=== PATIENT | male | born 1940 | race Caucasian/White ===

== ENCOUNTER 2023-05-27 15:43 | Observation (INO) | payer MEDICARE, OTHER ==
--- NOTE | 2023-05-27 16:06 | ERPHSYRPT ---
- History of Present Illness Time Seen by Provider: 05/27/23 16:06 Source: patient Exam Limitations: no limitations Patient Subjective Stated Complaint: Pt was driving when he suddenly had head pain and his eyes got blurry, broke out into a sweat, had jaw pain and thought he was going to pass out, pt went to the [facility] in [place] and they told him to go to the ER, pt did take a nitro which helped Triage Nursing Assessment: Pt brought to the ER by his , vitals wnl, rates head pain as a 2-3/10, states that he feels much better, pulses normal, skin n/w/d, walked into the ER room slowly, pt states that he has a hx of afib and 2 leaky valves, no difficulty breathing, no blurry vision, pt is on eliquis Physician History: Patient is a 83-year-old male presents to our ED as a referral from [facility]. Patient states he was driving his vehicle. Patient became acutely symptomatic. Patient states he developed "head pain". Patient vision became blurred he became sweaty and diaphoretic. Patient experienced some chest pressure and discomfort in his jaw. Patient had a near syncopal episode. Patient went to [facility]. Advised him of his symptoms and patient was referred to our ED. Patient's symptoms had improved but patient still feeling somewhat dizzy. Patient has a history of atrial fibrillation currently on Eliquis. Symptoms were associated with some chest pressure. No active chest pressure at this time. at bedside. They voiced no other complaints or concerns at this time. Portions of this note were created with voice recognition technology. There may be grammatical, spelling, punctuation or sound alike errors Timing/Duration: today Severity: moderate Modifying Factors: Improves With: nothing Associated Symptoms: diaphoresis, other (Chest pressure) Allergies/Adverse Reactions: propoxyphene HCl [From Darvon] Allergy (Verified 05/27/23 16:00) Home Medications: Levothyroxine Sodium 50 Mcg [Synthroid 50 Mcg] 50 mcg PO DAILY 05/02/15 [History] Metformin HCl 500 mg [Glucophage 500 MG] 500 mg PO BID 05/02/15 [History] dilTIAZem HCl [Cardizem Cd] 180 mg PO DAILY 09/29/15 [History] Glimepiride 2 mg [Amaryl 2 MG] 2 mg PO DAILY 06/20/21 [History] Apixaban [Eliquis] 5 mg PO BID 05/27/23 [History] Hydrochlorothiazide 25 mg [hydroDIURIL 25 MG] 25 mg PO DAILY 05/27/23 [History] Metoprolol Succinate 100 mg [Toprol Xl 100 MG] 100 mg PO DAILY 05/27/23 [History] PANTOPRAZOLE 40 mg Tablet [Protonix 40MG Tablet] 40 mg PO QAM 05/27/23 [History] Tamsulosin HCl 0.4 mg [Flomax 0.4 MG] 0.4 mg PO DAILY 05/27/23 [History] Hx Tetanus, Diphtheria Vaccination/Date Given: No Hx Influenza Vaccination/Date Given: No Hx Pneumococcal Vaccination/Date Given: No Travel Risk - International Travel Have you traveled outside of the country in past 3 weeks: No - Coronavirus Screening Are you exhibiting any of the following symptoms?: No Close contact with a COVID-19 positive Pt in past 14-21 Days: No - Vaccine Status Have you recieved a Covid-19 vaccination: Yes Draftsperson: Andel - Vaccination Dates Date of 2cond Vaccination (if applicable): 2020 - Review of Systems Constitutional: No Symptoms, No Fever, No Chills Eyes: No Symptoms Ears, Nose, & Throat: No Symptoms Respiratory: No Symptoms, No Cough, No Dyspnea Cardiac: No Symptoms, No Chest Pain, No Edema, No Syncope Abdominal/Gastrointestinal: No Symptoms, No Abdominal Pain, No Nausea, No Vomiting, No Diarrhea Genitourinary Symptoms: No Symptoms, No Dysuria Musculoskeletal: No Symptoms, No Back Pain, No Neck Pain Skin: No Symptoms, No Rash Neurological: No Symptoms, No Dizziness, No Focal Weakness, No Sensory Changes Psychological: No Symptoms Endocrine: No Symptoms Hematologic/Lymphatic: No Symptoms Immunological/Allergic: No Symptoms All Other Systems: Reviewed and Negative - Past Medical History Pertinent Past Medical History: Yes Neurological History: No Pertinent History ENT History: No Pertinent History Cardiac History: No Pertinent History, Arrhythmia, High Cholesterol, Hypertension, Myocardial Infarction ([place]) Respiratory History: No Pertinent History Endocrine Medical History: Diabetes Type II, Hypothyroidism Musculoskeletal History: No Pertinent History GI Medical History: GERD History: No Pertinent History Psycho-Social History: No Pertinent History Male Reproductive Disorders: No Pertinent History Other Medical History: HX of boils - Past Surgical History Past Surgical History: Yes Neuro Surgical History: No Pertinent History Cardiac: No Pertinent History Respiratory: No Pertinent History Gastrointestinal: Cholecystectomy, Hemorrhoidectomy Genitourinary: No Pertinent History Musculoskeletal: No Pertinent History Male Surgical History: No Pertinent History - Social History Smoking Status: Former smoker Exposure to second hand smoke: No Drug Use: none Patient Lives Alone: No - Nursing Vital Signs Nursing Vital Signs: Initial Vital Signs Temperature 96.5 F 05/27/23 15:46 Pulse Rate 68 05/27/23 15:46 Respiratory Rate 19 05/27/23 15:46 Blood Pressure 121/65 05/27/23 15:46 O2 Sat by Pulse Oximetry 97 05/27/23 15:46 Pain Scale Pain Intensity 3 - Physical Exam General Appearance: no apparent distress, alert Eye Exam: PERRL/EOMI, eyes nml inspection Ears, Nose, Throat Exam: normal ENT inspection, TMs normal, pharynx normal, moist mucous membranes Neck Exam: normal inspection, non-tender, supple, full range of motion Respiratory Exam: normal breath sounds, lungs clear, airway intact, No respiratory distress Cardiovascular Exam: regular rate/rhythm, normal heart sounds, normal peripheral pulses Gastrointestinal/Abdomen Exam: soft, normal bowel sounds, No tenderness, No mass Back Exam: normal inspection, normal range of motion, No CVA tenderness, No vertebral tenderness Extremity Exam: normal inspection, normal range of motion, pelvis stable Neurologic Exam: alert, oriented x 3, cooperative, normal mood/affect, nml cerebellar function, nml station & gait, sensation nml, No motor deficits Skin Exam: normal color, warm, dry, No rash Lymphatic Exam: No adenopathy SpO2 Interpretation: normal SpO2: 97 O2 Delivery: Room Air - Course Nursing assessment & vital signs reviewed: Yes EKG Interpreted by Me: RATE (83), A-fib, NORMAL AXIS, NORMAL INTERVALS - CT Exams Head CT Interpretation: Tele-radiologist Report (No comps normal head) Ordered Tests: Active Orders 24 hr Category Date Time Status Test Manager STAT Care 05/27/23 17:04 Active EKG-ER Only STAT Care 05/27/23 17:03 Active IV Insertion STAT Care 05/27/23 17:03 Active Pulse Oximetry (ED) STAT Care 05/27/23 17:03 Active CHEST 1 VIEW (PORTABLE) Stat Exams 05/27/23 17:04 Taken HEAD WITHOUT CONTRAST [CT] Stat Exams 05/27/23 17:03 Taken CBC W DIFF Stat Lab 05/27/23 17:20 Completed CMP Stat Lab 05/27/23 17:20 Completed NT PRO BNPII Stat Lab 05/27/23 17:20 Completed POCT GLUCOSE Stat Lab 05/27/23 19:09 Completed TROPONIN Q4H Lab 05/27/23 17:20 Completed TROPONIN Q4H Lab 05/27/23 21:15 Ordered TROPONIN Q4H Lab 05/28/23 01:15 Ordered Lab/Rad Data: Laboratory Result Diagrams 05/27/23 17:20 05/27/23 17:20 Laboratory Results 05/27/23 05/27/23 05/27/23 Range/Units 19:09 17:20 17:20 WBC (4.0-10.5) x10^3/uL RBC (4.1-5.6) x10^6/uL Hgb (12.5-18.0) g/dL Hct (42-50) % MCV (78-100) fL MCH (26-32) pg MCHC (32-36) g/dL RDW (11.5-14.0) % Plt Count (150-450) x10^3/uL MPV (7.5-11.0) fL Gran % (36.0-66.0) % Immature Gran % (Auto) (0.00-0.4) % Nucleat RBC Rel Count (0.00-0.1) % Eos # (Auto) (0-0.5) x10^3/uL Immature Gran # (Auto) (0.00-0.03) x10^3u/L Absolute Lymphs (auto) (1.0-4.6) x10^3/uL Absolute Monos (auto) (0.0-1.3) x10^3/uL Absolute Nucleated RBC (0.00-0.01) x10^3u/L Lymphocytes % (24.0-44.0) % Monocytes % (0.0-12.0) % Eosinophils % (0.00-5.0) % Basophils % (0.0-0.4) % Absolute Granulocytes (1.4-6.9) x10^3/uL Basophils # (0-0.4) x10^3/uL Sodium 138 (137-145) mmol/L Potassium 3.6 (3.5-5.1) mmol/L Chloride 105 (98-107) mmol/L Carbon Dioxide 25 (22-30) mmol/L Anion Gap 11.1 (5-15) MEQ/L BUN 28 H (9-20) mg/dL Creatinine 1.76 H (0.66-1.25) mg/dL Estimated GFR 39.6 ML/MIN Glucose 69 L (74-106) mg/dL POC Glucometer 54 L (74 to 106) mg/dL Calcium 8.8 (8.4-10.2) mg/dL Total Bilirubin 0.30 (0.2-1.3) mg/dL AST 24 (17-59) U/L ALT 18 (0-50) U/L Alkaline Phosphatase 54 (38-126) U/L Troponin I < 0.012 (0.000-0.034) ng/mL NT-Pro-B Natriuret Pep 267 (<300) pg/mL Serum Total Protein 6.3 (6.3-8.2) g/dL Albumin 3.9 (3.5-5.0) g/dL 05/27/23 Range/Units 17:20 WBC 4.8 (4.0-10.5) x10^3/uL RBC 3.63 L (4.1-5.6) x10^6/uL Hgb 11.6 L (12.5-18.0) g/dL Hct 35.3 L (42-50) % MCV 97.2 (78-100) fL MCH 32.0 (26-32) pg MCHC 32.9 (32-36) g/dL RDW 13.1 (11.5-14.0) % Plt Count 231 (150-450) x10^3/uL MPV 10.0 (7.5-11.0) fL Gran % 54.7 (36.0-66.0) % Immature Gran % (Auto) 0.2 (0.00-0.4) % Nucleat RBC Rel Count 0.0 (0.00-0.1) % Eos # (Auto) 0.09 (0-0.5) x10^3/uL Immature Gran # (Auto) 0.01 (0.00-0.03) x10^3u/L Absolute Lymphs (auto) 1.55 (1.0-4.6) x10^3/uL Absolute Monos (auto) 0.52 (0.0-1.3) x10^3/uL Absolute Nucleated RBC 0.00 (0.00-0.01) x10^3u/L Lymphocytes % 32.2 (24.0-44.0) % Monocytes % 10.8 (0.0-12.0) % Eosinophils % 1.9 (0.00-5.0) % Basophils % 0.2 (0.0-0.4) % Absolute Granulocytes 2.64 (1.4-6.9) x10^3/uL Basophils # 0.01 (0-0.4) x10^3/uL Sodium (137-145) mmol/L Potassium (3.5-5.1) mmol/L Chloride (98-107) mmol/L Carbon Dioxide (22-30) mmol/L Anion Gap (5-15) MEQ/L BUN (9-20) mg/dL Creatinine (0.66-1.25) mg/dL Estimated GFR ML/MIN Glucose (74-106) mg/dL POC Glucometer (74 to 106) mg/dL Calcium (8.4-10.2) mg/dL Total Bilirubin (0.2-1.3) mg/dL AST (17-59) U/L ALT (0-50) U/L Alkaline Phosphatase (38-126) U/L Troponin I (0.000-0.034) ng/mL NT-Pro-B Natriuret Pep (<300) pg/mL Serum Total Protein (6.3-8.2) g/dL Albumin (3.5-5.0) g/dL - Progress Progress: improved Progress Note: Patient is an 83-year-old male with a history of A-fib on Eliquis presents to our ED with near syncopal episode. Patient experienced acute onset headache dizziness chest pressure jaw pain. Symptoms improved upon arrival to our ED but not completely resolved. Physical exam essentially unremarkable. EKG revealed atrial fibrillation. Chest x-ray shows no acute findings. CT head negative for acute intracranial pathology. CBC nonremarkable. CMP reveals acute renal injury. Mild dehydration. BNP within normal limits. Initial troponin negative. Case discussed with Dr. Crowley at 4:35 PM and again at 6:30 PM. excepts admission to observation for further evaluation and treatment/cardiac rule out Portions of this note were created with voice recognition technology. There may be grammatical, spelling, punctuation or sound alike errors Complexity of problems addressed is moderate acute complicated. No critical care time Complexity of data reviewed and analyzed is extensive. Test ordered test reviewed. Results analyzed and clinically correlated with history and physical exam. Case and management discussed with hospitalist Dr. Crowley who excepts admission to observation. Risk complication and or risk morbidity/mortality of patient management is high. Patient will require hospitalization for further evaluation and treatment. Vital stable. Time spent admit patient approximately 20 minutes. Plan of care established for shared decision making. No social determinants of health present. Follow-up. Portions of this note were created with voice recognition technology. There may be grammatical, spelling, punctuation or sound alike errors 05/27/23 19:[address] Other (Dr. Crowley) Counseled pt/family regarding: lab results, diagnosis, rad results - Departure Departure Disposition: Observation Clinical Impression: Near syncope, Chest pressure, Headache, Acute renal injury, Chronic atrial fibrillation, Hypoglycemia Condition: Stable Critical Care Time: No Referrals: MATT HARDING MD [Primary Care Provider] - Follow up/PCP as directed
[2023-05-27 17:30] LABS: Absolute Neutrophil Ct (ANC) 2.64 x10^3/uL (1.4-6.9); BASOPHIL % 0.2 % (0.0-0.4); Basophil (Absolute #) 0.01 x10^3/uL (0-0.4); Eosinophil % 1.9 % (0.00-5.0); Eosinophil (Absolute #) 0.09 x10^3/uL (0-0.5); Hematocrit 35.3 % (42-50); Hemoglobin 11.6 g/dL (12.5-18.0); IMMATURE GRAN # 0.01 x10^3u/L (0.00-0.03); IMMATURE GRAN % 0.2 % (0.00-0.4); Lymphocyte (Absolute #) 1.55 x10^3/uL (1.0-4.6); Lymphocytes % 32.2 % (24.0-44.0); Mean Cell Volume 97.2 fL (78-100); Mean Corpuscular Hgb Concent. 32.9 g/dL (32-36); Monocyte (Absolute #) 0.52 x10^3/uL (0.0-1.3); Monocytes % 10.8 % (0.0-12.0); Neutrophil % 54.7 % (36.0-66.0); Platelet Count 231 x10^3/uL (150-450); Red Blood Count 3.63 x10^6/uL (4.1-5.6); Red Cell Distribution Width 13.1 % (11.5-14.0); White Blood Count 4.8 x10^3/uL (4.0-10.5)
[2023-05-27 17:52] LABS: ALBUMIN 3.9 g/dL (3.5-5.0); ANION GAP 11.1 MEQ/L (5-15); BILIRUBIN,TOTAL 0.3 mg/dL (0.2-1.3); Calcium 8.8 mg/dL (8.4-10.2); Creatinine 1 1.76 mg/dL (0.66-1.25); EST GLOMERULAR FILTRATION RATE 39.6 ML/MIN; Potassium 3.6 mmol/L (3.5-5.1); Total Protein 6.3 g/dL (6.3-8.2)
[2023-05-27] MEDS ORDERED: Sodium Chloride 0.9% 1000 ML 1,000 ML ONE (19:25)
[2023-05-27] MEDS ORDERED: Sodium Chloride 0.9% 1000 ML 1,000 ML IV SCH (19:30)
[2023-05-27] MEDS ORDERED: TYLENOL 325 MG PO PRN (23:36)
[2023-05-27] MEDS ORDERED: HUMALOG SQ PRN (23:36)
[2023-05-27] MEDS ORDERED: Zofran 4 MG/2 ML VIAL IV PRN (23:36)
[2023-05-27] MEDS ORDERED: Docusate Sodium 100 MG PO PRN (23:36)
--- NOTE | 2023-05-27 23:49 | PCM.HP ---
History of Present Illness - Chief Complaint Chief Complaint: Near syncope, acute coronary syndrome, chest pressure hypog lycemia Date: 05/27/23 History of Present Illness: This is an 83-year-old M admitted for evaluation of chest pain. He has past medical history of hypothyroid, diabetes, hypertension, A-fib on Eliquis. He presented to the ED this afternoon for evaluation of sudden onset headache for which he was seen at [facility] as he was worried about BP. He also took nitro at that time. He was sent to the ED due to complaints of chest pain. He also reported blurry vision, diaphoresis, jaw pain. Symptoms all resolved prior to coming to the ED except for BOYD which has also no resolved. On arrival he was afebrile, heart rate 68, blood pressure 121/65 lab significant for glucose 54, WBC 4.8, hemoglobin 11.6, platelets 231, creatinine 1.76, troponin negative, BNP 267. CT head was negative for acute pathology; chest x-ray negative for acute pathology. - Review of Systems Eyes: No Symptoms Ears, Nose, & Throat: No Symptoms Respiratory: No Symptoms Cardiac: Chest Pain Abdominal/Gastrointestinal: No Symptoms Genitourinary Symptoms: No Symptoms Musculoskeletal: No Symptoms Skin: No Symptoms Neurological: Headache Psychological: No Symptoms Hematologic/Lymphatic: No Symptoms Medications & Allergies Home Medications: Home Medication List Levothyroxine Sodium 50 Mcg [Synthroid 50 Mcg] 50 mcg PO DAILY 05/02/15 [History Confirmed 05/27/23] Metformin HCl 500 mg [Glucophage 500 MG] 500 mg PO BID 05/02/15 [History Confirmed 05/27/23] dilTIAZem HCl [Cardizem Cd] 180 mg PO DAILY 09/29/15 [History Confirmed 05/27/23] Glimepiride 2 mg [Amaryl 2 MG] 2 mg PO DAILY 06/20/21 [History Confirmed 05/27/23] Apixaban [Eliquis] 5 mg PO BID 05/27/23 [History Confirmed 05/27/23] Hydrochlorothiazide 25 mg [hydroDIURIL 25 MG] 25 mg PO DAILY 05/27/23 [History Confirmed 05/27/23] Metoprolol Succinate 100 mg [Toprol Xl 100 MG] 100 mg PO DAILY 05/27/23 [History Confirmed 05/27/23] PANTOPRAZOLE 40 mg Tablet [Protonix 40MG Tablet] 40 mg PO QAM 05/27/23 [History Confirmed 05/27/23] Tamsulosin HCl 0.4 mg [Flomax 0.4 MG] 0.4 mg PO DAILY 05/27/23 [History Confirmed 05/27/23] Allergies/Adverse Reactions: Allergies Allergy/AdvReac Type Severity Reaction Status Date / Time propoxyphene HCl Allergy Verified 05/27/23 16:00 [From Darvon] - Past Medical History Past Medical History: Yes Neurological History: No Pertinent History ENT History: No Pertinent History Cardiac History: No Pertinent History, Arrhythmia, High Cholesterol, Hypertension, Myocardial Infarction ([place]) Respiratory History: No Pertinent History Endocrine Medical History: Diabetes Type II, Hypothyroidism Musculoskelatal History: No Pertinent History GI Medical History: GERD History: No Pertinent History Pyscho-Social History: No Pertinent History Male Reproductive Disorders: No Pertinent History Comment: HX of boils - Past Surgical History Past Surgical History: Yes Neuro Surgical History: No Pertinent History Cardiac History: No Pertinent History Respiratory Surgery: No Pertinent History GI Surgical History: Cholecystectomy, Hemorrhoidectomy Genitourinary Surgical Hx: No Pertinent History Musculskeletal Surgical Hx: No Pertinent History Male Surgical History: No Pertinent History - Social History Smoking Status: Former smoker Exposure to second hand smoke: No Alcohol: None Drug Use: none - Physical Exam Vital Signs: Vital Signs - 24 hr Temp Pulse Resp BP BP Pulse Ox 05/27/23 21:11 96 05/27/23 20:41 97.8 F 72 18 129/60 96 05/27/23 20:00 68 16 133/53 97 05/27/23 19:30 70 16 128/68 96 05/27/23 19:15 97 05/27/23 19:00 73 16 105/49 95 05/27/23 18:54 67 15 106/51 97 05/27/23 17:30 65 23 120/63 97 05/27/23 17:29 97 05/27/23 17:08 71 21 104/45 96 05/27/23 17:07 66 16 05/27/23 16:30 61 24 96/46 96 05/27/23 16:10 67 15 101/62 96 05/27/23 16:00 71 17 123/71 97 05/27/23 15:46 96.5 F 68 19 121/65 97 General Appearance: no apparent distress Neurologic Exam: alert, oriented x 3 Eye Exam: PERRL/EOMI Ears, Nose, Throat Exam: normal ENT inspection Neck Exam: normal inspection Respiratory Exam: normal breath sounds Cardiovascular Exam: normal heart sounds, No edema Gastrointestinal/Abdomen Exam: soft, normal bowel sounds Skin Exam: normal color, warm, dry Lymphatic Exam: No adenopathy Results - Labs Lab/Micro Results: Lab Results-Last 24 Hours 05/27/23 05/27/23 05/27/23 Range/Units 17:20 17:20 17:20 WBC 4.8 (4.0-10.5) x10^3/uL RBC 3.63 L (4.1-5.6) x10^6/uL Hgb 11.6 L (12.5-18.0) g/dL Hct 35.3 L (42-50) % MCV 97.2 (78-100) fL MCH 32.0 (26-32) pg MCHC 32.9 (32-36) g/dL RDW 13.1 (11.5-14.0) % Plt Count 231 (150-450) x10^3/uL MPV 10.0 (7.5-11.0) fL Gran % 54.7 (36.0-66.0) % Immature Gran % (Auto) 0.2 (0.00-0.4) % Nucleat RBC Rel Count 0.0 (0.00-0.1) % Eos # (Auto) 0.09 (0-0.5) x10^3/uL Immature Gran # (Auto) 0.01 (0.00-0.03) x10^3u/L Absolute Lymphs (auto) 1.55 (1.0-4.6) x10^3/uL Absolute Monos (auto) 0.52 (0.0-1.3) x10^3/uL Absolute Nucleated RBC 0.00 (0.00-0.01) x10^3u/L Lymphocytes % 32.2 (24.0-44.0) % Monocytes % 10.8 (0.0-12.0) % Eosinophils % 1.9 (0.00-5.0) % Basophils % 0.2 (0.0-0.4) % Absolute Granulocytes 2.64 (1.4-6.9) x10^3/uL Basophils # 0.01 (0-0.4) x10^3/uL Sodium 138 (137-145) mmol/L Potassium 3.6 (3.5-5.1) mmol/L Chloride 105 (98-107) mmol/L Carbon Dioxide 25 (22-30) mmol/L Anion Gap 11.1 (5-15) MEQ/L BUN 28 H (9-20) mg/dL Creatinine 1.76 H (0.66-1.25) mg/dL Estimated GFR 39.6 ML/MIN Glucose 69 L (74-106) mg/dL POC Glucometer (74 to 106) mg/dL Calcium 8.8 (8.4-10.2) mg/dL Total Bilirubin 0.30 (0.2-1.3) mg/dL AST 24 (17-59) U/L ALT 18 (0-50) U/L Alkaline Phosphatase 54 (38-126) U/L Troponin I < 0.012 (0.000-0.034) ng/mL NT-Pro-B Natriuret Pep 267 (<300) pg/mL Serum Total Protein 6.3 (6.3-8.2) g/dL Albumin 3.9 (3.5-5.0) g/dL 05/27/23 05/27/23 05/27/23 Range/Units 19:09 20:18 21:04 WBC (4.0-10.5) x10^3/uL RBC (4.1-5.6) x10^6/uL Hgb (12.5-18.0) g/dL Hct (42-50) % MCV (78-100) fL MCH (26-32) pg MCHC (32-36) g/dL RDW (11.5-14.0) % Plt Count (150-450) x10^3/uL MPV (7.5-11.0) fL Gran % (36.0-66.0) % Immature Gran % (Auto) (0.00-0.4) % Nucleat RBC Rel Count (0.00-0.1) % Eos # (Auto) (0-0.5) x10^3/uL Immature Gran # (Auto) (0.00-0.03) x10^3u/L Absolute Lymphs (auto) (1.0-4.6) x10^3/uL Absolute Monos (auto) (0.0-1.3) x10^3/uL Absolute Nucleated RBC (0.00-0.01) x10^3u/L Lymphocytes % (24.0-44.0) % Monocytes % (0.0-12.0) % Eosinophils % (0.00-5.0) % Basophils % (0.0-0.4) % Absolute Granulocytes (1.4-6.9) x10^3/uL Basophils # (0-0.4) x10^3/uL Sodium (137-145) mmol/L Potassium (3.5-5.1) mmol/L Chloride (98-107) mmol/L Carbon Dioxide (22-30) mmol/L Anion Gap (5-15) MEQ/L BUN (9-20) mg/dL Creatinine (0.66-1.25) mg/dL Estimated GFR ML/MIN Glucose (74-106) mg/dL POC Glucometer 54 L 91 105 (74 to 106) mg/dL Calcium (8.4-10.2) mg/dL Total Bilirubin (0.2-1.3) mg/dL AST (17-59) U/L ALT (0-50) U/L Alkaline Phosphatase (38-126) U/L Troponin I (0.000-0.034) ng/mL NT-Pro-B Natriuret Pep (<300) pg/mL Serum Total Protein (6.3-8.2) g/dL Albumin (3.5-5.0) g/dL 05/27/23 Range/Units 21:45 WBC (4.0-10.5) x10^3/uL RBC (4.1-5.6) x10^6/uL Hgb (12.5-18.0) g/dL Hct (42-50) % MCV (78-100) fL MCH (26-32) pg MCHC (32-36) g/dL RDW (11.5-14.0) % Plt Count (150-450) x10^3/uL MPV (7.5-11.0) fL Gran % (36.0-66.0) % Immature Gran % (Auto) (0.00-0.4) % Nucleat RBC Rel Count (0.00-0.1) % Eos # (Auto) (0-0.5) x10^3/uL Immature Gran # (Auto) (0.00-0.03) x10^3u/L Absolute Lymphs (auto) (1.0-4.6) x10^3/uL Absolute Monos (auto) (0.0-1.3) x10^3/uL Absolute Nucleated RBC (0.00-0.01) x10^3u/L Lymphocytes % (24.0-44.0) % Monocytes % (0.0-12.0) % Eosinophils % (0.00-5.0) % Basophils % (0.0-0.4) % Absolute Granulocytes (1.4-6.9) x10^3/uL Basophils # (0-0.4) x10^3/uL Sodium (137-145) mmol/L Potassium (3.5-5.1) mmol/L Chloride (98-107) mmol/L Carbon Dioxide (22-30) mmol/L Anion Gap (5-15) MEQ/L BUN (9-20) mg/dL Creatinine (0.66-1.25) mg/dL Estimated GFR ML/MIN Glucose (74-106) mg/dL POC Glucometer (74 to 106) mg/dL Calcium (8.4-10.2) mg/dL Total Bilirubin (0.2-1.3) mg/dL AST (17-59) U/L ALT (0-50) U/L Alkaline Phosphatase (38-126) U/L Troponin I < 0.012 (0.000-0.034) ng/mL NT-Pro-B Natriuret Pep (<300) pg/mL Serum Total Protein (6.3-8.2) g/dL Albumin (3.5-5.0) g/dL - Radiology Impressions Radiology Exams & Impressions: Radiology Procedures Category Date Time Status CHEST 1 VIEW (PORTABLE) Stat Exams 05/27/23 17:04 Taken HEAD WITHOUT CONTRAST [CT] Stat Exams 05/27/23 17:03 Taken - Other Procedures and Tests Respiratory Therapy 05/27/23 23:36 EKG PRN Assessment/Plan (1) Chronic atrial fibrillation Current Visit: Yes Status: Acute Code(s): I48.20 - CHRONIC ATRIAL FIBRILLATION, UNSPECIFIED (2) Hypoglycemia Current Visit: Yes Status: Acute Code(s): E16.2 - HYPOGLYCEMIA, UNSPECIFIED (3) Near syncope Current Visit: Yes Status: Acute Assessment & Plan: ASSESSMENT #Chest pain #Presyncope #Hypoglycemia #History of A-fib on Eliquis #History of diabetes #History of hypertension #History of hypothyroid #History of CKD (creatinine 1.5 in 2019, 2022. PLAN -Monitor on telemetry -Trend troponins -Follow renal panel and urine output -Continue outpatient meds Prophylaxis: Already on anticoagulation Entire encounter performed via telemedicine. Telemedicine Encounter - Telemedicine Encounter Telemedicine Encounter: The entirety of this encounter was performed via Telemedicine"
[2023-05-28 02:50] LABS: Hematocrit 33.4 % (42-50); Hemoglobin 11.1 g/dL (12.5-18.0); Mean Cell Volume 97.4 fL (78-100); Mean Corpuscular Hemoglobin 32.4 pg (26-32); Mean Corpuscular Hgb Concent. 33.2 g/dL (32-36); Mean Platelet Volume 10.1 fL (7.5-11.0); Platelet Count 204 x10^3/uL (150-450); Red Blood Count 3.43 x10^6/uL (4.1-5.6); Red Cell Distribution Width 13.1 % (11.5-14.0); White Blood Count 4.7 x10^3/uL (4.0-10.5)
[2023-05-28 03:10] LABS: ANION GAP 7.9 MEQ/L (5-15); Calcium 8.6 mg/dL (8.4-10.2); Creatinine 1 1.57 mg/dL (0.66-1.25); EST GLOMERULAR FILTRATION RATE 45.2 ML/MIN; Potassium 3.5 mmol/L (3.5-5.1)
--- NOTE | 2023-05-28 05:30 | PCM.NOTE ---
Date and Time: 05/28/23526 Subjective Assessment: This is an 83-year-old M admitted for evaluation of chest pain. He has past medical history of hypothyroid, diabetes, hypertension, A-fib on Eliquis. He presented to the ED this afternoon for evaluation of sudden onset headache for which he was seen at [facility] as he was worried about BP. He also took nitro at that time. He was sent to the ED due to complaints of chest pain. He also reported blurry vision, diaphoresis, jaw pain. Symptoms all resolved prior to coming to the ED except for BOYD which has also no resolved. On arrival he was afebrile, heart rate 68, blood pressure 121/65 lab significant for glucose 54, WBC 4.8, hemoglobin 11.6, platelets 231, creatinine 1.76, troponin negative, BNP 267. CT head was negative for acute pathology; chest x-ray negative for acute pathology. OBJECTIVE DATA Vital Signs: Vital Signs - 24 hr Temp Pulse Resp BP BP Pulse Ox 05/28/23 03:57 98.0 F 74 17 128/59 96 05/28/23 00:00 16 05/27/23 21:11 96 05/27/23 20:41 97.8 F 72 18 129/60 96 05/27/23 20:00 68 16 133/53 97 05/27/23 19:30 70 16 128/68 96 05/27/23 19:15 97 05/27/23 19:00 73 16 105/49 95 05/27/23 18:54 67 15 106/51 97 05/27/23 17:30 65 23 120/63 97 05/27/23 17:29 97 05/27/23 17:08 71 21 104/45 96 05/27/23 17:07 66 16 05/27/23 16:30 61 24 96/46 96 05/27/23 16:10 67 15 101/62 96 05/27/23 16:00 71 17 123/71 97 05/27/23 15:46 96.5 F 68 19 121/65 97 Pain Assessment - Last Documented Pain Intensity 0 Intake and Output: Intake & Output 05/25/23 05/26/23 05/27/23 05/28/23 11:59 11:59 11:59 11:59 Intake Total 960 Balance 960 Weight 79.3 kg Lab Results: Lab Results-Last 24 Hours 05/27/23 05/27/23 05/27/23 Range/Units 17:20 17:20 17:20 WBC 4.8 (4.0-10.5) x10^3/uL RBC 3.63 L (4.1-5.6) x10^6/uL Hgb 11.6 L (12.5-18.0) g/dL Hct 35.3 L (42-50) % MCV 97.2 (78-100) fL MCH 32.0 (26-32) pg MCHC 32.9 (32-36) g/dL RDW 13.1 (11.5-14.0) % Plt Count 231 (150-450) x10^3/uL MPV 10.0 (7.5-11.0) fL Gran % 54.7 (36.0-66.0) % Immature Gran % (Auto) 0.2 (0.00-0.4) % Nucleat RBC Rel Count 0.0 (0.00-0.1) % Eos # (Auto) 0.09 (0-0.5) x10^3/uL Immature Gran # (Auto) 0.01 (0.00-0.03) x10^3u/L Absolute Lymphs (auto) 1.55 (1.0-4.6) x10^3/uL Absolute Monos (auto) 0.52 (0.0-1.3) x10^3/uL Absolute Nucleated RBC 0.00 (0.00-0.01) x10^3u/L Lymphocytes % 32.2 (24.0-44.0) % Monocytes % 10.8 (0.0-12.0) % Eosinophils % 1.9 (0.00-5.0) % Basophils % 0.2 (0.0-0.4) % Absolute Granulocytes 2.64 (1.4-6.9) x10^3/uL Basophils # 0.01 (0-0.4) x10^3/uL Sodium 138 (137-145) mmol/L Potassium 3.6 (3.5-5.1) mmol/L Chloride 105 (98-107) mmol/L Carbon Dioxide 25 (22-30) mmol/L Anion Gap 11.1 (5-15) MEQ/L BUN 28 H (9-20) mg/dL Creatinine 1.76 H (0.66-1.25) mg/dL Estimated GFR 39.6 ML/MIN Glucose 69 L (74-106) mg/dL POC Glucometer (74 to 106) mg/dL Calcium 8.8 (8.4-10.2) mg/dL Total Bilirubin 0.30 (0.2-1.3) mg/dL AST 24 (17-59) U/L ALT 18 (0-50) U/L Alkaline Phosphatase 54 (38-126) U/L Troponin I < 0.012 (0.000-0.034) ng/mL NT-Pro-B Natriuret Pep 267 (<300) pg/mL Serum Total Protein 6.3 (6.3-8.2) g/dL Albumin 3.9 (3.5-5.0) g/dL 05/27/23 05/27/23 05/27/23 Range/Units 19:09 20:18 21:04 WBC (4.0-10.5) x10^3/uL RBC (4.1-5.6) x10^6/uL Hgb (12.5-18.0) g/dL Hct (42-50) % MCV (78-100) fL MCH (26-32) pg MCHC (32-36) g/dL RDW (11.5-14.0) % Plt Count (150-450) x10^3/uL MPV (7.5-11.0) fL Gran % (36.0-66.0) % Immature Gran % (Auto) (0.00-0.4) % Nucleat RBC Rel Count (0.00-0.1) % Eos # (Auto) (0-0.5) x10^3/uL Immature Gran # (Auto) (0.00-0.03) x10^3u/L Absolute Lymphs (auto) (1.0-4.6) x10^3/uL Absolute Monos (auto) (0.0-1.3) x10^3/uL Absolute Nucleated RBC (0.00-0.01) x10^3u/L Lymphocytes % (24.0-44.0) % Monocytes % (0.0-12.0) % Eosinophils % (0.00-5.0) % Basophils % (0.0-0.4) % Absolute Granulocytes (1.4-6.9) x10^3/uL Basophils # (0-0.4) x10^3/uL Sodium (137-145) mmol/L Potassium (3.5-5.1) mmol/L Chloride (98-107) mmol/L Carbon Dioxide (22-30) mmol/L Anion Gap (5-15) MEQ/L BUN (9-20) mg/dL Creatinine (0.66-1.25) mg/dL Estimated GFR ML/MIN Glucose (74-106) mg/dL POC Glucometer 54 L 91 105 (74 to 106) mg/dL Calcium (8.4-10.2) mg/dL Total Bilirubin (0.2-1.3) mg/dL AST (17-59) U/L ALT (0-50) U/L Alkaline Phosphatase (38-126) U/L Troponin I (0.000-0.034) ng/mL NT-Pro-B Natriuret Pep (<300) pg/mL Serum Total Protein (6.3-8.2) g/dL Albumin (3.5-5.0) g/dL 05/27/23 05/28/23 05/28/23 Range/Units 21:45 02:30 02:30 WBC 4.7 (4.0-10.5) x10^3/uL RBC 3.43 L (4.1-5.6) x10^6/uL Hgb 11.1 L (12.5-18.0) g/dL Hct 33.4 L (42-50) % MCV 97.4 (78-100) fL MCH 32.4 H (26-32) pg MCHC 33.2 (32-36) g/dL RDW 13.1 (11.5-14.0) % Plt Count 204 (150-450) x10^3/uL MPV 10.1 (7.5-11.0) fL Gran % (36.0-66.0) % Immature Gran % (Auto) (0.00-0.4) % Nucleat RBC Rel Count (0.00-0.1) % Eos # (Auto) (0-0.5) x10^3/uL Immature Gran # (Auto) (0.00-0.03) x10^3u/L Absolute Lymphs (auto) (1.0-4.6) x10^3/uL Absolute Monos (auto) (0.0-1.3) x10^3/uL Absolute Nucleated RBC (0.00-0.01) x10^3u/L Lymphocytes % (24.0-44.0) % Monocytes % (0.0-12.0) % Eosinophils % (0.00-5.0) % Basophils % (0.0-0.4) % Absolute Granulocytes (1.4-6.9) x10^3/uL Basophils # (0-0.4) x10^3/uL Sodium 136 L (137-145) mmol/L Potassium 3.5 (3.5-5.1) mmol/L Chloride 105 (98-107) mmol/L Carbon Dioxide 27 (22-30) mmol/L Anion Gap 7.9 (5-15) MEQ/L BUN 25 H (9-20) mg/dL Creatinine 1.57 H (0.66-1.25) mg/dL Estimated GFR 45.2 ML/MIN Glucose 83 (74-106) mg/dL POC Glucometer (74 to 106) mg/dL Calcium 8.6 (8.4-10.2) mg/dL Total Bilirubin (0.2-1.3) mg/dL AST (17-59) U/L ALT (0-50) U/L Alkaline Phosphatase (38-126) U/L Troponin I < 0.012 (0.000-0.034) ng/mL NT-Pro-B Natriuret Pep (<300) pg/mL Serum Total Protein (6.3-8.2) g/dL Albumin (3.5-5.0) g/dL 05/28/23 Range/Units 02:45 WBC (4.0-10.5) x10^3/uL RBC (4.1-5.6) x10^6/uL Hgb (12.5-18.0) g/dL Hct (42-50) % MCV (78-100) fL MCH (26-32) pg MCHC (32-36) g/dL RDW (11.5-14.0) % Plt Count (150-450) x10^3/uL MPV (7.5-11.0) fL Gran % (36.0-66.0) % Immature Gran % (Auto) (0.00-0.4) % Nucleat RBC Rel Count (0.00-0.1) % Eos # (Auto) (0-0.5) x10^3/uL Immature Gran # (Auto) (0.00-0.03) x10^3u/L Absolute Lymphs (auto) (1.0-4.6) x10^3/uL Absolute Monos (auto) (0.0-1.3) x10^3/uL Absolute Nucleated RBC (0.00-0.01) x10^3u/L Lymphocytes % (24.0-44.0) % Monocytes % (0.0-12.0) % Eosinophils % (0.00-5.0) % Basophils % (0.0-0.4) % Absolute Granulocytes (1.4-6.9) x10^3/uL Basophils # (0-0.4) x10^3/uL Sodium (137-145) mmol/L Potassium (3.5-5.1) mmol/L Chloride (98-107) mmol/L Carbon Dioxide (22-30) mmol/L Anion Gap (5-15) MEQ/L BUN (9-20) mg/dL Creatinine (0.66-1.25) mg/dL Estimated GFR ML/MIN Glucose (74-106) mg/dL POC Glucometer (74 to 106) mg/dL Calcium (8.4-10.2) mg/dL Total Bilirubin (0.2-1.3) mg/dL AST (17-59) U/L ALT (0-50) U/L Alkaline Phosphatase (38-126) U/L Troponin I < 0.012 (0.000-0.034) ng/mL NT-Pro-B Natriuret Pep (<300) pg/mL Serum Total Protein (6.3-8.2) g/dL Albumin (3.5-5.0) g/dL Radiology Exams: Radiology Procedures Category Date Time Status CHEST 1 VIEW (PORTABLE) Stat Exams 05/27/23 17:04 Taken HEAD WITHOUT CONTRAST [CT] Stat Exams 05/27/23 17:03 Taken Assessment/Plan (1) Anemia Current Visit: Yes Status: Acute Code(s): D64.9 - ANEMIA, UNSPECIFIED (2) Acute renal injury Current Visit: Yes Status: Acute Code(s): N17.9 - ACUTE KIDNEY FAILURE, UNSPECIFIED (3) Chest pressure Current Visit: Yes Status: Acute Code(s): R07.89 - OTHER CHEST PAIN (4) Chronic atrial fibrillation Current Visit: Yes Status: Acute Code(s): I48.20 - CHRONIC ATRIAL FIBRILLATION, UNSPECIFIED (5) Hypoglycemia Current Visit: Yes Status: Acute Code(s): E16.2 - HYPOGLYCEMIA, UNSPECIFIED (6) Near syncope Current Visit: Yes Status: Acute
[2023-05-28 07:39] VITALS: BP 128/64; PULSE 76; RESP 16; TEMP 97.8; O2SAT 91
[2023-05-28] MEDS ORDERED: Glucophage 500 MG PO SCH ×2 (08:00→12:00)
[2023-05-28] MEDS ORDERED: Toprol Xl 100 MG PO SCH (10:00)
[2023-05-28] MEDS ORDERED: hydroDIURIL 25 MG PO SCH (10:00)
[2023-05-28] MEDS ORDERED: Cardizem CD PO SCH (10:00)
[2023-05-28] MEDS ORDERED: SYNTHROID 50 MCG PO SCH (10:00)
[2023-05-28] MEDS ORDERED: Flomax 0.4 MG PO SCH (10:00)
[2023-05-28] MEDS ORDERED: Protonix 40MG Tablet PO SCH (10:00)
[2023-05-28] MEDS ORDERED: Amaryl 2 MG PO SCH (10:00)
[2023-05-28] MEDS ORDERED: NON-FORMULARY ITEM (Apixaban [Eliquis] 5 MG Tablet) PO SCH (10:00)
[2023-05-28] MEDS ORDERED: ELIQUIS 2.5 MG TABLET PO SCH (10:00)
--- NOTE | 2023-05-28 11:16 | PCM.DS ---
Discharge Summary Date of Admission: 05/27/23 20:31 Date of Discharge: 05/28/25 Admitting Physician: ALFONSO SALGUERO MD Primary Care Provider: MATT HARDING Allergies Allergies propoxyphene HCl [From Darvon] Allergy (Verified 05/27/23 16:00) Hospital Summary - Hospital Course Hospital Course: This is an 83-year-old M admitted for evaluation of chest pain. He has past medical history of hypothyroid, diabetes, hypertension, A-fib on Eliquis. He presented to the ED this afternoon for evaluation of sudden onset headache for which he was seen at [facility] as he was worried about BP. He also took nitro at that time. He was sent to the ED due to complaints of chest pain. He also reported blurry vision, diaphoresis, jaw pain. Symptoms all resolved prior to coming to the ED except for BOYD which has also no resolved. On arrival he was afebrile, heart rate 68, blood pressure 121/65 lab significant for glucose 54, WBC 4.8, hemoglobin 11.6, platelets 231, creatinine 1.76, troponin negative, BNP 267. CT head was negative for acute pathology; chest x-ray negative for acute pathology. Troponins negative. No overnight observation events noted. Patient no longer with c/o chest pain. Denies fever,cough, sob, cp, abdominal pain, BOYD, dizziness, N/V/D. Patient wishes to be discharged. Advised follow up with Dr. Kumar his sports manager as well Dr. Gallegos, patient states he is being worked up op for his kidney function and is at baseline curre ntly. He has a follow up appt with El on 06/09/23. Advised patient to hold his glimepiride due to hypoglycemic episodes until he meets with PCP for further evaluation, okay to resume metformin. New Diagnosis: CP New Medications:None Follow Up: cardiology/pcp Latest Assessment & Plan #Chest pain #Presyncope #Hypoglycemia #History of A-fib on Eliquis #History of diabetes #History of hypertension #History of hypothyroid #History of CKD (creatinine 1.5 in 2019, 2022. PLAN -Monitor on telemetry -Trend troponins -Follow renal panel and urine output -Continue outpatient meds Prophylaxis: Already on anticoagulation I spent 35 minutes [id number] with the patient on the day of discharge performing discharge exam, discussing hospital stay and discharge instructions with patient and caregivers, preparation of discharge records, prescriptions & referral forms and addressing any questions/concerns the patient had as documented above. - Vitals & Intake/Output Vital Signs: Vital Signs Temperature 97.8 F 05/28/23 07:38 Pulse Rate 76 05/28/23 07:38 Respiratory Rate 16 05/28/23 07:38 Blood Pressure 128/64 05/28/23 07:38 O2 Sat by Pulse Oximetry 91 L 05/28/23 07:38 Intake & Output: Intake & Output 05/25/23 05/26/23 05/27/23 05/28/23 11:59 11:59 11:59 11:59 Intake Total 1200 Balance 1200 Weight 79.3 kg - Lab Result Diagrams: 05/28/23 02:30 05/28/23 02:30 Lab Results-Last 24 Hrs: Lab Results-Last 24 Hours 05/27/23 05/27/23 05/27/23 Range/Units 17:20 17:20 17:20 WBC 4.8 (4.0-10.5) x10^3/uL RBC 3.63 L (4.1-5.6) x10^6/uL Hgb 11.6 L (12.5-18.0) g/dL Hct 35.3 L (42-50) % MCV 97.2 (78-100) fL MCH 32.0 (26-32) pg MCHC 32.9 (32-36) g/dL RDW 13.1 (11.5-14.0) % Plt Count 231 (150-450) x10^3/uL MPV 10.0 (7.5-11.0) fL Gran % 54.7 (36.0-66.0) % Immature Gran % (Auto) 0.2 (0.00-0.4) % Nucleat RBC Rel Count 0.0 (0.00-0.1) % Eos # (Auto) 0.09 (0-0.5) x10^3/uL Immature Gran # (Auto) 0.01 (0.00-0.03) x10^3u/L Absolute Lymphs (auto) 1.55 (1.0-4.6) x10^3/uL Absolute Monos (auto) 0.52 (0.0-1.3) x10^3/uL Absolute Nucleated RBC 0.00 (0.00-0.01) x10^3u/L Lymphocytes % 32.2 (24.0-44.0) % Monocytes % 10.8 (0.0-12.0) % Eosinophils % 1.9 (0.00-5.0) % Basophils % 0.2 (0.0-0.4) % Absolute Granulocytes 2.64 (1.4-6.9) x10^3/uL Basophils # 0.01 (0-0.4) x10^3/uL Sodium 138 (137-145) mmol/L Potassium 3.6 (3.5-5.1) mmol/L Chloride 105 (98-107) mmol/L Carbon Dioxide 25 (22-30) mmol/L Anion Gap 11.1 (5-15) MEQ/L BUN 28 H (9-20) mg/dL Creatinine 1.76 H (0.66-1.25) mg/dL Estimated GFR 39.6 ML/MIN Glucose 69 L (74-106) mg/dL POC Glucometer (74 to 106) mg/dL Calcium 8.8 (8.4-10.2) mg/dL Total Bilirubin 0.30 (0.2-1.3) mg/dL AST 24 (17-59) U/L ALT 18 (0-50) U/L Alkaline Phosphatase 54 (38-126) U/L Troponin I < 0.012 (0.000-0.034) ng/mL NT-Pro-B Natriuret Pep 267 (<300) pg/mL Serum Total Protein 6.3 (6.3-8.2) g/dL Albumin 3.9 (3.5-5.0) g/dL 05/27/23 05/27/23 05/27/23 Range/Units 19:09 20:18 21:04 WBC (4.0-10.5) x10^3/uL RBC (4.1-5.6) x10^6/uL Hgb (12.5-18.0) g/dL Hct (42-50) % MCV (78-100) fL MCH (26-32) pg MCHC (32-36) g/dL RDW (11.5-14.0) % Plt Count (150-450) x10^3/uL MPV (7.5-11.0) fL Gran % (36.0-66.0) % Immature Gran % (Auto) (0.00-0.4) % Nucleat RBC Rel Count (0.00-0.1) % Eos # (Auto) (0-0.5) x10^3/uL Immature Gran # (Auto) (0.00-0.03) x10^3u/L Absolute Lymphs (auto) (1.0-4.6) x10^3/uL Absolute Monos (auto) (0.0-1.3) x10^3/uL Absolute Nucleated RBC (0.00-0.01) x10^3u/L Lymphocytes % (24.0-44.0) % Monocytes % (0.0-12.0) % Eosinophils % (0.00-5.0) % Basophils % (0.0-0.4) % Absolute Granulocytes (1.4-6.9) x10^3/uL Basophils # (0-0.4) x10^3/uL Sodium (137-145) mmol/L Potassium (3.5-5.1) mmol/L Chloride (98-107) mmol/L Carbon Dioxide (22-30) mmol/L Anion Gap (5-15) MEQ/L BUN (9-20) mg/dL Creatinine (0.66-1.25) mg/dL Estimated GFR ML/MIN Glucose (74-106) mg/dL POC Glucometer 54 L 91 105 (74 to 106) mg/dL Calcium (8.4-10.2) mg/dL Total Bilirubin (0.2-1.3) mg/dL AST (17-59) U/L ALT (0-50) U/L Alkaline Phosphatase (38-126) U/L Troponin I (0.000-0.034) ng/mL NT-Pro-B Natriuret Pep (<300) pg/mL Serum Total Protein (6.3-8.2) g/dL Albumin (3.5-5.0) g/dL 05/27/23 05/28/23 05/28/23 Range/Units 21:45 02:30 02:30 WBC 4.7 (4.0-10.5) x10^3/uL RBC 3.43 L (4.1-5.6) x10^6/uL Hgb 11.1 L (12.5-18.0) g/dL Hct 33.4 L (42-50) % MCV 97.4 (78-100) fL MCH 32.4 H (26-32) pg MCHC 33.2 (32-36) g/dL RDW 13.1 (11.5-14.0) % Plt Count 204 (150-450) x10^3/uL MPV 10.1 (7.5-11.0) fL Gran % (36.0-66.0) % Immature Gran % (Auto) (0.00-0.4) % Nucleat RBC Rel Count (0.00-0.1) % Eos # (Auto) (0-0.5) x10^3/uL Immature Gran # (Auto) (0.00-0.03) x10^3u/L Absolute Lymphs (auto) (1.0-4.6) x10^3/uL Absolute Monos (auto) (0.0-1.3) x10^3/uL Absolute Nucleated RBC (0.00-0.01) x10^3u/L Lymphocytes % (24.0-44.0) % Monocytes % (0.0-12.0) % Eosinophils % (0.00-5.0) % Basophils % (0.0-0.4) % Absolute Granulocytes (1.4-6.9) x10^3/uL Basophils # (0-0.4) x10^3/uL Sodium 136 L (137-145) mmol/L Potassium 3.5 (3.5-5.1) mmol/L Chloride 105 (98-107) mmol/L Carbon Dioxide 27 (22-30) mmol/L Anion Gap 7.9 (5-15) MEQ/L BUN 25 H (9-20) mg/dL Creatinine 1.57 H (0.66-1.25) mg/dL Estimated GFR 45.2 ML/MIN Glucose 83 (74-106) mg/dL POC Glucometer (74 to 106) mg/dL Calcium 8.6 (8.4-10.2) mg/dL Total Bilirubin (0.2-1.3) mg/dL AST (17-59) U/L ALT (0-50) U/L Alkaline Phosphatase (38-126) U/L Troponin I < 0.012 (0.000-0.034) ng/mL NT-Pro-B Natriuret Pep (<300) pg/mL Serum Total Protein (6.3-8.2) g/dL Albumin (3.5-5.0) g/dL 05/28/23 05/28/23 Range/Units 02:45 06:58 WBC (4.0-10.5) x10^3/uL RBC (4.1-5.6) x10^6/uL Hgb (12.5-18.0) g/dL Hct (42-50) % MCV (78-100) fL MCH (26-32) pg MCHC (32-36) g/dL RDW (11.5-14.0) % Plt Count (150-450) x10^3/uL MPV (7.5-11.0) fL Gran % (36.0-66.0) % Immature Gran % (Auto) (0.00-0.4) % Nucleat RBC Rel Count (0.00-0.1) % Eos # (Auto) (0-0.5) x10^3/uL Immature Gran # (Auto) (0.00-0.03) x10^3u/L Absolute Lymphs (auto) (1.0-4.6) x10^3/uL Absolute Monos (auto) (0.0-1.3) x10^3/uL Absolute Nucleated RBC (0.00-0.01) x10^3u/L Lymphocytes % (24.0-44.0) % Monocytes % (0.0-12.0) % Eosinophils % (0.00-5.0) % Basophils % (0.0-0.4) % Absolute Granulocytes (1.4-6.9) x10^3/uL Basophils # (0-0.4) x10^3/uL Sodium (137-145) mmol/L Potassium (3.5-5.1) mmol/L Chloride (98-107) mmol/L Carbon Dioxide (22-30) mmol/L Anion Gap (5-15) MEQ/L BUN (9-20) mg/dL Creatinine (0.66-1.25) mg/dL Estimated GFR ML/MIN Glucose (74-106) mg/dL POC Glucometer 88 (74 to 106) mg/dL Calcium (8.4-10.2) mg/dL Total Bilirubin (0.2-1.3) mg/dL AST (17-59) U/L ALT (0-50) U/L Alkaline Phosphatase (38-126) U/L Troponin I < 0.012 (0.000-0.034) ng/mL NT-Pro-B Natriuret Pep (<300) pg/mL Serum Total Protein (6.3-8.2) g/dL Albumin (3.5-5.0) g/dL Micro Results-Entire Visit: Accuchecks Date 05/28/23 - Radiology Exams Ordered Rad Exams-Entire Visit: Radiology Procedures Category Date Time Status CHEST 1 VIEW (PORTABLE) Stat Exams 05/27/23 17:04 Taken HEAD WITHOUT CONTRAST [CT] Stat Exams 05/27/23 17:03 Taken - Procedures and Test Procedures and Tests throughout Hospitalization: Therapy Orders & Screens 05/27/23 23:36 EKG PRN Comment: PRN chest pain Diagnosis: Near syncope, acute coronary syndrome, chest pressure hypoglycemia Discharge Exam General Appearance: no apparent distress Neurologic Exam: alert, oriented x 3, cooperative Eye Exam: PERRL Ears, Nose, Throat Exam: normal ENT inspection Neck Exam: normal inspection Respiratory Exam: normal breath sounds, lungs clear Cardiovascular Exam: regular rate/rhythm, normal heart sounds Gastrointestinal/Abdomen Exam: soft, normal bowel sounds Male Genitalia Exam: deferred Rectal Exam: deferred Back Exam: normal inspection Extremity Exam: normal inspection Skin Exam: normal color Final Diagnosis/Problem List - Final Discharge Diagnosis/Problem (1) Anemia Current Visit: Yes Status: Acute Code(s): D64.9 - ANEMIA, UNSPECIFIED (2) Acute renal injury Current Visit: Yes Status: Acute Code(s): N17.9 - ACUTE KIDNEY FAILURE, UNSPECIFIED (3) Chest pressure Current Visit: Yes Status: Acute Code(s): R07.89 - OTHER CHEST PAIN (4) Chronic atrial fibrillation Current Visit: Yes Status: Acute Code(s): I48.20 - CHRONIC ATRIAL FIBRILLATION, UNSPECIFIED (5) Hypoglycemia Current Visit: Yes Status: Acute Code(s): E16.2 - HYPOGLYCEMIA, UNSPECIFIED (6) Near syncope Current Visit: Yes Status: Acute - Discharge Disposition: Home, Self-Care Condition: Stable Prescriptions: Continue Metformin HCl 500 mg [Glucophage 500 MG] 500 mg PO BID Levothyroxine Sodium 50 Mcg [Synthroid 50 Mcg] 50 mcg PO DAILY dilTIAZem HCl [Cardizem Cd] 180 mg PO DAILY Tamsulosin HCl 0.4 mg [Flomax 0.4 MG] 0.4 mg PO DAILY PANTOPRAZOLE 40 mg Tablet [Protonix 40MG Tablet] 40 mg PO QAM Metoprolol Succinate 100 mg [Toprol Xl 100 MG] 100 mg PO DAILY Hydrochlorothiazide 25 mg [hydroDIURIL 25 MG] 25 mg PO DAILY Apixaban [Eliquis] 5 mg PO BID Discontinued Glimepiride 2 mg [Amaryl 2 MG] 2 mg PO DAILY Instructions: Low Blood Sugar, Adult (DC), Chest Pain (DC) Follow up with: MATT HARDING MD [Primary Care Provider] - 06/05/23 10:45 am ([place] [facility] ) LUAN KUMAR [CONSULTING PHYSICIAN] - 1 Week ILEANA GALLEGOS [CONSULTING PHYSICIAN] - 1 Week Forms: Discharge Instructions
--- NOTE | 2023-05-28 13:53 | XRAY ---
Indication: Dizziness. Multiple contiguous axial images obtained through the head without contrast. Comparison: None Normal appearing brain parenchyma, ventricles, and bony calvarium for patient's age. Visualized paranasal sinuses and mastoid air cells are clear. Impression: Normal CT head without contrast exam.
--- NOTE | 2023-05-28 13:54 | XRAY ---
Indication: Short of breath. Comparison: January 22, 2022 Portable apical lordotic chest inflated and clear again with incidental azygos lobe and mild right hemidiaphragm elevation. Heart not enlarged. Bony thorax intact again with osteopenia and mild degenerative changes. Impression: Nonacute chest with chronic features.
== END 2023-05-28 12:05 | disposition home or self-care (01) ==
LOC: ED 15:43 → MED SURG 20:31
PROVIDERS: ADMIT Internal Medicine; ATTEND Internal Medicine
DX: D64.9 Anemia, unspecified (principal); N17.9 Acute kidney failure, unspecified; R07.89 Other chest pain; I48.20 Chronic atrial fibrillation, unspecified; E11.649 Type 2 diabetes mellitus with hypoglycemia without coma; I12.9 Hypertensive chronic kidney disease with stage 1 through stage 4 chronic kidney disease, or unspecified chronic kidney disease; E11.22 Type 2 diabetes mellitus with diabetic chronic kidney disease; N18.9 Chronic kidney disease, unspecified; E03.9 Hypothyroidism, unspecified; R55 Syncope and collapse; Z79.01 Long term (current) use of anticoagulants; Z79.899 Other long term (current) drug therapy; Z20.828 Contact with and (suspected) exposure to other viral communicable diseases
CPT/HCPCS: 36000; 36415; 70450; 71045; 80048; 80053; 82947; 83880; 84484; 85025; 85027; 93005; 93041; 94760; 99284; Q3014